=== PATIENT | female | born 1960 | race Two or more races ===

== ENCOUNTER 2022-08-21 21:39 | Inpatient (IN) | payer MEDICARE, OTHER ==
[~2022-08-21] VITALS: Ht 177.8 cm; Wt 79.4 kg
[2022-08-21 23:55] VITALS: BP 122/75
[2022-08-22] MEDS ORDERED: LORAZEPAM 0.5 MG TABLET PO PRN
[2022-08-22] MEDS ORDERED: BLOOD SUGAR DIAGNOSTIC 1 EACH STRIP IN ONE
[2022-08-22] MEDS ORDERED: MAG HYDROX/AL HYDROX/SIMETH 30 ML UDC PO PRN
[2022-08-22] MEDS ORDERED: MAGNESIUM HYDROXIDE 30 ML UDC PO PRN
[2022-08-22] MEDS ORDERED: ACETAMINOPHEN 325 MG TABLET PO PRN
[2022-08-22] MEDS ORDERED: CHOL400T11 PO (04:51)
[2022-08-22] MEDS ORDERED: ATOR20TA PO (04:51)
[2022-08-22] MEDS ORDERED: ESCI10TA PO (04:51)
[2022-08-22] MEDS ORDERED: LISI-656 PO (04:51)
[2022-08-22] MEDS ORDERED: HALO1TAB5 PO (04:51)
[2022-08-22] MEDS ORDERED: DOCU-141 PO (04:51)
[2022-08-22] MEDS ORDERED: CLOP75TA15 PO (04:51)
[2022-08-22] MEDS ORDERED: GABA400C PO (04:51)
[2022-08-22] MEDS ORDERED: DIVA500T2 PO (04:51)
[2022-08-22 07:33] LABS: CREATININE 0.8 mg/dL (0.6-1.3)
[2022-08-22 08:00] VITALS: BP 145/82
[2022-08-22] MEDS: CLOPIDOGREL BISULFATE 75 MG TABLET PO SCH (09:00)
[2022-08-22] MEDS: LISINOPRIL (5MG) 5 MG TABLET PO SCH ×2 (09:00→17:00)
[2022-08-22] MEDS: CHOLECALCIFEROL (VITAMIN D 3) 400 UNIT TABLET PO SCH (09:00)
[2022-08-22] MEDS: DOCUSATE SODIUM 100 MG CAPSULE PO SCH ×2 (09:00→17:00)
[2022-08-22] MEDS: GABAPENTIN 400 MG CAPSULE PO SCH ×3 (09:00→17:00)
[2022-08-22] MEDS: HALOPERIDOL 1 MG TABLET PO SCH ×2 (13:00→17:00)
[2022-08-22 16:00] VITALS: BP 122/72
[2022-08-22 20:30] VITALS: BP 123/72
[2022-08-22] MEDS: DIVALPROEX SODIUM 500 MG TABLET.DR PO SCH (21:00)
[2022-08-22] MEDS: ATORVASTATIN 10 MG TABLET PO SCH (22:00)
[2022-08-23 08:00] VITALS: BP 124/74
[2022-08-23] MEDS: DIVALPROEX SODIUM 500 MG TABLET.DR PO SCH ×2 (09:00→21:00)
[2022-08-23] MEDS: HALOPERIDOL 1 MG TABLET PO SCH ×3 (09:00→17:00)
[2022-08-23] MEDS: DOCUSATE SODIUM 100 MG CAPSULE PO SCH ×2 (09:00→17:00)
[2022-08-23] MEDS: CHOLECALCIFEROL (VITAMIN D 3) 400 UNIT TABLET PO SCH (09:00)
[2022-08-23] MEDS: CLOPIDOGREL BISULFATE 75 MG TABLET PO SCH (09:00)
[2022-08-23] MEDS: LISINOPRIL (5MG) 5 MG TABLET PO SCH ×2 (09:00→17:00)
[2022-08-23] MEDS: GABAPENTIN 400 MG CAPSULE PO SCH ×3 (09:00→17:00)
[2022-08-23 19:55] VITALS: BP 136/92
[2022-08-23] MEDS: ATORVASTATIN 10 MG TABLET PO SCH (21:37)
[2022-08-24 08:00] VITALS: BP 136/79
[2022-08-24] MEDS: HALOPERIDOL 1 MG TABLET PO SCH ×3 (08:34→16:15)
[2022-08-24] MEDS: CLOPIDOGREL BISULFATE 75 MG TABLET PO SCH (08:34)
[2022-08-24] MEDS: DIVALPROEX SODIUM 500 MG TABLET.DR PO SCH ×2 (08:34→20:30)
[2022-08-24] MEDS: DOCUSATE SODIUM 100 MG CAPSULE PO SCH ×2 (08:34→16:15)
[2022-08-24] MEDS: GABAPENTIN 400 MG CAPSULE PO SCH ×3 (08:34→16:15)
[2022-08-24] MEDS: CHOLECALCIFEROL (VITAMIN D 3) 400 UNIT TABLET PO SCH (08:35)
[2022-08-24] MEDS: LISINOPRIL (5MG) 5 MG TABLET PO SCH ×2 (08:35→16:15)
[2022-08-24] MEDS ORDERED: HALOPERIDOL LACTATE INJ 5 MG/ML VIAL IM PRN (12:00)
[2022-08-24 16:00] VITALS: BP 156/94
[2022-08-24 20:00] VITALS: BP 103/69
[2022-08-24] MEDS: ATORVASTATIN 10 MG TABLET PO SCH (21:04)
[2022-08-25 08:00] VITALS: BP 120/61
[2022-08-25] MEDS: DIVALPROEX SODIUM 500 MG TABLET.DR PO SCH ×2 (08:12→20:48)
[2022-08-25] MEDS: HALOPERIDOL 1 MG TABLET PO SCH ×3 (08:12→17:11)
[2022-08-25] MEDS: GABAPENTIN 400 MG CAPSULE PO SCH ×3 (08:12→17:11)
[2022-08-25] MEDS: CLOPIDOGREL BISULFATE 75 MG TABLET PO SCH (08:24)
[2022-08-25] MEDS: DOCUSATE SODIUM 100 MG CAPSULE PO SCH ×2 (08:24→17:00)
[2022-08-25] MEDS: LISINOPRIL (5MG) 5 MG TABLET PO SCH ×2 (08:25→17:00)
[2022-08-25] MEDS: CHOLECALCIFEROL (VITAMIN D 3) 400 UNIT TABLET PO SCH (08:25)
[2022-08-25 16:00] VITALS: BP 127/67
[2022-08-25 20:22] VITALS: BP 100/60
[2022-08-25] MEDS: ATORVASTATIN 10 MG TABLET PO SCH (21:06)
[2022-08-26 08:00] VITALS: BP 137/79
[2022-08-26] MEDS: DIVALPROEX SODIUM 500 MG TABLET.DR PO SCH ×2 (08:47→20:26)
[2022-08-26] MEDS: HALOPERIDOL 1 MG TABLET PO SCH ×2 (08:47→12:30)
[2022-08-26] MEDS: GABAPENTIN 400 MG CAPSULE PO SCH ×2 (08:47→12:30)
[2022-08-26] MEDS: CLOPIDOGREL BISULFATE 75 MG TABLET PO SCH (08:50)
[2022-08-26] MEDS: LISINOPRIL (5MG) 5 MG TABLET PO SCH (08:50)
[2022-08-26] MEDS: CHOLECALCIFEROL (VITAMIN D 3) 400 UNIT TABLET PO SCH (08:50)
[2022-08-26] MEDS: DOCUSATE SODIUM 100 MG CAPSULE PO SCH (08:50)
[2022-08-26 16:00] VITALS: BP 137/73
[2022-08-26] MEDS: ATORVASTATIN 10 MG TABLET PO SCH (20:25)
[2022-08-26 21:08] VITALS: BP 129/73
[2022-08-27 04:00] VITALS: BP 122/69
[2022-08-27 08:00] VITALS: BP 141/75
[2022-08-27] MEDS: LISINOPRIL (5MG) 5 MG TABLET PO SCH ×2 (08:18→16:32)
[2022-08-27] MEDS: CHOLECALCIFEROL (VITAMIN D 3) 400 UNIT TABLET PO SCH (08:19)
[2022-08-27] MEDS: CLOPIDOGREL BISULFATE 75 MG TABLET PO SCH (08:19)
[2022-08-27] MEDS: DIVALPROEX SODIUM 500 MG TABLET.DR PO SCH ×2 (08:19→20:26)
[2022-08-27] MEDS: GABAPENTIN 400 MG CAPSULE PO SCH ×3 (08:19→16:32)
[2022-08-27] MEDS: DOCUSATE SODIUM 100 MG CAPSULE PO SCH ×2 (08:19→16:32)
[2022-08-27] MEDS: HALOPERIDOL 1 MG TABLET PO SCH ×3 (08:20→16:33)
[2022-08-27 16:00] VITALS: BP 126/80
[2022-08-27 19:39] VITALS: BP 117/57
[2022-08-27] MEDS: ATORVASTATIN 10 MG TABLET PO SCH (20:25)
[2022-08-27] MEDS: ZOLPIDEM TARTRATE 5 MG TABLET PO PRN (20:25)
[2022-08-28 08:00] VITALS: BP 134/71
[2022-08-28] MEDS: CHOLECALCIFEROL (VITAMIN D 3) 400 UNIT TABLET PO SCH (08:24)
[2022-08-28] MEDS: CLOPIDOGREL BISULFATE 75 MG TABLET PO SCH (08:24)
[2022-08-28] MEDS: DIVALPROEX SODIUM 500 MG TABLET.DR PO SCH ×2 (08:24→21:11)
[2022-08-28] MEDS: LISINOPRIL (5MG) 5 MG TABLET PO SCH ×2 (08:24→16:28)
[2022-08-28] MEDS: GABAPENTIN 400 MG CAPSULE PO SCH ×3 (08:24→16:28)
[2022-08-28] MEDS: HALOPERIDOL 1 MG TABLET PO SCH (08:25)
[2022-08-28] MEDS: DOCUSATE SODIUM 100 MG CAPSULE PO SCH ×2 (09:00→16:29)
[2022-08-28] MEDS ORDERED: HALOPERIDOL LACTATE INJ 5 MG/ML VIAL IM PRN (09:30)
[2022-08-28] MEDS: HALOPERIDOL 5 MG TABLET PO SCH ×2 (12:31→16:28)
[2022-08-28 16:00] VITALS: BP 155/65
[2022-08-28 19:30] VITALS: BP 137/79
[2022-08-28] MEDS: ZOLPIDEM TARTRATE 5 MG TABLET PO PRN (21:11)
[2022-08-28] MEDS: ATORVASTATIN 10 MG TABLET PO SCH (21:33)
[2022-08-29 08:00] VITALS: BP 126/50
[2022-08-29] MEDS: LISINOPRIL (5MG) 5 MG TABLET PO SCH ×2 (08:27→16:10)
[2022-08-29] MEDS: GABAPENTIN 400 MG CAPSULE PO SCH ×3 (08:27→16:10)
[2022-08-29] MEDS: DIVALPROEX SODIUM 500 MG TABLET.DR PO SCH ×2 (08:27→21:25)
[2022-08-29] MEDS: DOCUSATE SODIUM 100 MG CAPSULE PO SCH ×2 (08:27→16:10)
[2022-08-29] MEDS: HALOPERIDOL 5 MG TABLET PO SCH ×3 (08:27→16:10)
[2022-08-29] MEDS: CLOPIDOGREL BISULFATE 75 MG TABLET PO SCH (08:27)
[2022-08-29] MEDS: CHOLECALCIFEROL (VITAMIN D 3) 400 UNIT TABLET PO SCH (08:27)
[2022-08-29] MEDS ORDERED: HALOPERIDOL DECANOATE IM 100 MG/ML AMPUL IM SCH (11:30)
[2022-08-29] MEDS: BENZTROPINE MESYLATE (1 MG) 1 MG TABLET PO SCH ×2 (12:07→16:10)
[2022-08-29 16:00] VITALS: BP 132/66
[2022-08-29 19:55] VITALS: BP 96/56
[2022-08-29] MEDS: ATORVASTATIN 10 MG TABLET PO SCH (21:28)
[2022-08-30 08:00] VITALS: BP 136/77
[2022-08-30] MEDS: DOCUSATE SODIUM 100 MG CAPSULE PO SCH ×2 (09:00→17:00)
[2022-08-30] MEDS: HALOPERIDOL 5 MG TABLET PO SCH ×3 (09:16→17:05)
[2022-08-30] MEDS: CLOPIDOGREL BISULFATE 75 MG TABLET PO SCH (09:17)
[2022-08-30] MEDS: BENZTROPINE MESYLATE (1 MG) 1 MG TABLET PO SCH ×3 (09:17→17:05)
[2022-08-30] MEDS: DIVALPROEX SODIUM 500 MG TABLET.DR PO SCH ×2 (09:17→21:18)
[2022-08-30] MEDS: GABAPENTIN 400 MG CAPSULE PO SCH ×3 (09:18→17:05)
[2022-08-30] MEDS: LISINOPRIL (5MG) 5 MG TABLET PO SCH ×2 (09:18→17:00)
[2022-08-30] MEDS: CHOLECALCIFEROL (VITAMIN D 3) 400 UNIT TABLET PO SCH (09:19)
[2022-08-30 16:00] VITALS: BP 119/81
[2022-08-30 20:00] VITALS: BP 111/68
[2022-08-30] MEDS: ATORVASTATIN 10 MG TABLET PO SCH (21:18)
[2022-08-31 08:00] VITALS: BP 140/81
[2022-08-31] MEDS: DOCUSATE SODIUM 100 MG CAPSULE PO SCH ×3 (08:44→16:26)
[2022-08-31] MEDS: GABAPENTIN 400 MG CAPSULE PO SCH ×4 (08:44→16:25)
[2022-08-31] MEDS: CLOPIDOGREL BISULFATE 75 MG TABLET PO SCH (08:44)
[2022-08-31] MEDS: BENZTROPINE MESYLATE (1 MG) 1 MG TABLET PO SCH ×4 (08:44→16:25)
[2022-08-31] MEDS: CHOLECALCIFEROL (VITAMIN D 3) 400 UNIT TABLET PO SCH (08:44)
[2022-08-31] MEDS: DIVALPROEX SODIUM 500 MG TABLET.DR PO SCH ×4 (08:44→20:32)
[2022-08-31] MEDS: LISINOPRIL (5MG) 5 MG TABLET PO SCH ×3 (08:44→16:25)
[2022-08-31] MEDS: HALOPERIDOL 5 MG TABLET PO SCH ×3 (08:45→16:25)
[2022-08-31 16:00] VITALS: BP 134/70
[2022-08-31 20:00] VITALS: BP 147/80
[2022-08-31 21:00] VITALS: BP 135/80
[2022-08-31] MEDS: ATORVASTATIN 10 MG TABLET PO SCH (21:08)
[2022-09-01 08:00] VITALS: BP 132/88
[2022-09-01] MEDS: GABAPENTIN 400 MG CAPSULE PO SCH ×3 (08:27→16:41)
[2022-09-01] MEDS: HALOPERIDOL 5 MG TABLET PO SCH ×3 (08:27→16:41)
[2022-09-01] MEDS: CLOPIDOGREL BISULFATE 75 MG TABLET PO SCH (08:27)
[2022-09-01] MEDS: BENZTROPINE MESYLATE (1 MG) 1 MG TABLET PO SCH ×3 (08:27→16:41)
[2022-09-01] MEDS: DOCUSATE SODIUM 100 MG CAPSULE PO SCH ×2 (08:27→16:41)
[2022-09-01] MEDS: DIVALPROEX SODIUM 500 MG TABLET.DR PO SCH ×2 (08:27→21:03)
[2022-09-01] MEDS: CHOLECALCIFEROL (VITAMIN D 3) 400 UNIT TABLET PO SCH (08:27)
[2022-09-01] MEDS: LISINOPRIL (5MG) 5 MG TABLET PO SCH ×2 (08:28→16:41)
[2022-09-01 16:00] VITALS: BP 120/77
[2022-09-01 21:03] VITALS: BP 123/77
[2022-09-01] MEDS: ATORVASTATIN 10 MG TABLET PO SCH (21:03)
[2022-09-02 08:00] VITALS: BP 123/81
[2022-09-02] MEDS: HALOPERIDOL 5 MG TABLET PO SCH ×3 (08:28→17:25)
[2022-09-02] MEDS: BENZTROPINE MESYLATE (1 MG) 1 MG TABLET PO SCH ×3 (08:28→17:25)
[2022-09-02] MEDS: DIVALPROEX SODIUM 500 MG TABLET.DR PO SCH ×2 (08:29→21:02)
[2022-09-02] MEDS: CLOPIDOGREL BISULFATE 75 MG TABLET PO SCH (08:29)
[2022-09-02] MEDS: CHOLECALCIFEROL (VITAMIN D 3) 400 UNIT TABLET PO SCH (08:29)
[2022-09-02] MEDS: GABAPENTIN 400 MG CAPSULE PO SCH ×3 (08:29→17:25)
[2022-09-02] MEDS: DOCUSATE SODIUM 100 MG CAPSULE PO SCH ×2 (08:29→17:25)
[2022-09-02] MEDS: LISINOPRIL (5MG) 5 MG TABLET PO SCH ×2 (08:30→17:25)
[2022-09-02 16:00] VITALS: BP 114/69
[2022-09-02 20:27] VITALS: BP 114/73
[2022-09-02] MEDS: ATORVASTATIN 10 MG TABLET PO SCH (21:03)
[2022-09-03 08:00] VITALS: BP 145/88
[2022-09-03 08:31] VITALS: BP 145/88
[2022-09-03] MEDS: BENZTROPINE MESYLATE (1 MG) 1 MG TABLET PO SCH ×2 (08:31→12:16)
[2022-09-03] MEDS: CHOLECALCIFEROL (VITAMIN D 3) 400 UNIT TABLET PO SCH (08:31)
[2022-09-03] MEDS: LISINOPRIL (5MG) 5 MG TABLET PO SCH (08:31)
[2022-09-03] MEDS: DIVALPROEX SODIUM 500 MG TABLET.DR PO SCH (08:31)
[2022-09-03] MEDS: GABAPENTIN 400 MG CAPSULE PO SCH ×2 (08:31→12:16)
[2022-09-03] MEDS: DOCUSATE SODIUM 100 MG CAPSULE PO SCH (08:32)
[2022-09-03] MEDS: CLOPIDOGREL BISULFATE 75 MG TABLET PO SCH (08:32)
[2022-09-03] MEDS: HALOPERIDOL 5 MG TABLET PO SCH ×2 (08:32→12:16)
== END 2022-09-03 15:30 | DRG 885 ==
LOC: GPS 23:40
PROVIDERS: ADMIT Psychiatry & Neurology Psychiatry; ATTEND Internal Medicine
DX: F31.2 Bipolar disorder, current episode manic severe with psychotic features (principal); F29 Unspecified psychosis not due to a substance or known physiological condition; F41.9 Anxiety disorder, unspecified; Z73.6 Limitation of activities due to disability; R53.1 Weakness; R27.8 Other lack of coordination; Z91.81 History of falling; I10 Essential (primary) hypertension; G62.9 Polyneuropathy, unspecified; Z79.02 Long term (current) use of antithrombotics/antiplatelets; Z79.899 Other long term (current) drug therapy; G31.84 Mild cognitive impairment of uncertain or unknown etiology; I25.10 Atherosclerotic heart disease of native coronary artery without angina pectoris; E78.5 Hyperlipidemia, unspecified
CPT/HCPCS: 36415; 80061-TC; 80164-TC; 82565-TC; 82962-TC; 87081-TC; J1631